=== PATIENT | male | born 1955 | race African-American/Black ===

== ENCOUNTER 2018-09-25 13:53 | Outpatient (CLI) | payer MEDICARE ==
--- NOTE | 2018-09-25 17:07 | MRI ---
MRI OF THE LUMBAR SPINE WITHOUT CONTRAST: 09/25/18 HISTORY: Lumbar radiculopathy. Low back pain extending down to the right foot times several years. COMPARISON: None. FINDINGS: There is type I and type II Modic change at the L5-S1 level. No evidence of fracture. Otherwise, appr opriate T1 marrow signal intensity of the lumbar vertebrae. Symmetric signal intensity of the paraspinal muscles. Appropriate signal intensity of the visualized solid organs. Conus medullaris terminates at the inferior aspect of L1. T12-L1: No significant central canal stenosis or neural foraminal narrowing. L1-L2: Adequate disc hydration. No significant central canal stenosis or neural foraminal narrowing. L2-L3: Adequate disc hydration. No significant central canal stenosis. Mild bilateral foraminal narr owing. L3-L4: Adequate disc hydration. No significant central canal stenosis. Minimal ligamentum flavum thic [place] and facet hypertrophy. Mild bilateral neural foraminal narrowing. L4-L5: Adequate disc hydration. Generalized disc bulge without any significant central canal stenosis . Small amount of fluid in the facet joint. Mild bilateral neural foraminal narrowing. L5-S1: Moderate loss of disc space height. There is a broad based disc bulge with a small central/lef t and right subarticular superior disc extrusion. Disc material abuts bilateral traversing S1 nerve r oots without obscuration. No significant stenosis of the thecal sac. Moderate bilateral neural forami nal narrowing. IMPRESSION: 1. Degenerative changes of the lumbar spine as detailed above. No evidence of high grade centra l canal stenosis. 2. Type I Modic change at L5-S1. Moderate bilateral foraminal narrowing at L5-S1. POS: [facility]
== END 2018-09-25 13:54 | disposition home or self-care (01) ==
LOC: BICMRI 13:53
PROVIDERS: ATTEND Physical Medicine & Rehabilitation
DX: M54.17 Radiculopathy, lumbosacral region (principal); M47.26 Other spondylosis with radiculopathy, lumbar region; M46.96 Unspecified inflammatory spondylopathy, lumbar region; M48.07 Spinal stenosis, lumbosacral region
CPT/HCPCS: 72148

== ENCOUNTER 2019-12-16 12:53 | Outpatient (CLI) | payer MEDICARE, MEDICAID ==
--- NOTE | 2019-12-16 16:41 | MRI ---
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 COMPARISON: There is a left knee radiograph from 11/17/17. FINDINGS: There is prominent susceptibility artifact from the patient's known left total knee arthroplasty that limits visualization of the joint space. There is susceptibility artifact from the distal femur cons istent with the patient's previously seen intramedullary majo. The extent of the susceptibility artifa ct also limits evaluation of the extrinsic ligaments of the left knee. The visualized aspects of the extensor mechanism appear intact. IMPRESSION: Limited imaging study due to susceptibility artifact from the patient's left total knee arthroplasty. The visualized aspects of the extensor mechanism is intact. No definite periarticular fluid collecti on is evident. POS: [facility]
== END 2019-12-16 12:54 | disposition home or self-care (01) ==
LOC: BICMRI 12:53
PROVIDERS: ATTEND Physical Medicine & Rehabilitation
DX: M25.562 Pain in left knee (principal); Z96.652 Presence of left artificial knee joint